=== PATIENT | male | born 1965 | race Caucasian/White ===

== ENCOUNTER 2017-07-07 23:39 | Inpatient (IN) | payer MEDICAID ==
[~2017-07-07] VITALS: Ht 188 cm; Wt 139.7 kg
[~2017-07-07 23:39] MED LIST: ALPRTAB PO; ASPI325T4 PO; ATOR40TA52 PO; CLOP75TA41 PO; FENO160T8 PO; GABA800T97 PO; GLIP-116 PO; INSLANTI SC; METF-372 PO
[2017-07-08] VITALS (11 sets, daily range): BP systolic 120–161; BP diastolic 65–112
[2017-07-08 00:34] LABS: Basophils # (auto) 0 uL; Basophils % (auto) 0.4 % (0.0-2.0); Eosinophils # (auto) 0.6 uL; Eosinophils % (auto) 5.5 % (0.0-7.0); Hematocrit 49.2 % (41.0-53.0); Hemoglobin 16.6 g/dL (13.5-17.5); Lymphocytes # (auto) 3.9 uL; Lymphocytes % (auto) 39.6 % (10.0-50.0); Mean Corpuscular Hemoglobin 30.7 pg (28.0-32.0); Mean Corpuscular Hgb Conc. 33.9 g/dL (32.0-36.0); Mean Corpuscular Volume 90.6 fL (80.0-100.0); Monocytes # (auto) 0.8 uL; Neutrophils # (auto) 4.6 uL; Neutrophils % (auto) 46.5 % (37.0-80.0); Nucleated Red Blood Cells % 0.2 %; Platelet Count (auto) 299 10^3/uL (140-450); Red Blood Cells 5.43 10^6/uL (4.5-5.90); Red Cell Distribution Width 13.4 % (11.8-14.3)
[2017-07-08 00:55] LABS: Alanine Aminotransferase 51 U/L (16-61); Albumin 3.6 g/dL (3.4-5.0); Amylase 57 U/L (25-115); Anion Gap 8 (5-15); Aspartate Aminotransferase 32 U/L (15-37); BUN/Creatinine Ratio 11.2; Blood Urea Nitrogen 12 mg/dL (7-18); Carbon Dioxide 26 mmol/L (21-32); Chloride 104 mmol/L (98-107); GFR African American 94 mL/min; GFR Non-African American 77 mL/min; Glucose 178 mg/dL (74-106); Lipase 220 U/L (73-393); Magnesium 2.2 mg/dL (1.6-2.6); Potassium 4.1 mmol/L (3.5-5.1); Sodium 138 mmol/L (136-145)
[2017-07-08 01:01] LABS: Alkaline Phosphatase 83 U/L (45-117); Bilirubin, Total 0.3 mg/dL (0.2-1.0); Total Protein 7.3 g/dL (6.4-8.2)
[2017-07-08 01:05] LABS: Urine Bacteria NONE SEEN /hpf (None Seen); Urine Blood 3+ /uL (Negative); Urine Mucus FEW (None Seen); Urine Specific Gravity 1.025 (1.001-1.035); Urine WBC 11 /hpf (0 - 3)
[2017-07-08] MEDS ORDERED: SODIUM CHLORIDE 0.9% 1,000 ML IVB ONE (06:37)
[2017-07-08] MEDS ORDERED: KETOROLAC TROMETH 30 MG/ML 1ML VIAL IV ONE (06:45)
[2017-07-08] MEDS ORDERED: GABAPENTIN 400 MG CAP PO ONE (07:30)
[2017-07-08] MEDS ORDERED: SODIUM CHLORIDE 0.9% 1,000 ML IV SCH ×2 (08:49→10:40)
[2017-07-08] MEDS ORDERED: SODIUM CHLORIDE 0.9% 1,000 ML IV ONE (08:51)
[2017-07-08] MEDS ORDERED: DOPamine 1600MCG/ML D5W 250 ML IV ONE (08:56)
[2017-07-08] MEDS ORDERED: LORazepam 0.5 MG TAB PO PRN (09:00)
[2017-07-08] MEDS ORDERED: ACETAMINOPHEN 500 MG TAB PO PRN (09:00)
[2017-07-08] MEDS ORDERED: PROMETHAZINE HCL 25 MG/ML 1ML IV PRN (09:00)
[2017-07-08] MEDS ORDERED: TEMAZEPAM 15 MG CAP PO PRN (09:00)
[2017-07-08] MEDS ORDERED: DEXTROSE (50%) 50ML SYRG IV PRN (09:00)
[2017-07-08] MEDS ORDERED: DOPamine 1600MCG/ML D5W 250 ML IV SCH (09:00)
[2017-07-08] MEDS ORDERED: HYDROcodone-ACET 5/325MG TAB PO PRN (09:00)
[2017-07-08] MEDS ORDERED: ATROPINE SULFATE 0.4 MG/1 ML VIAL IV ONE (09:11)
[2017-07-08] MEDS ORDERED: IOHEXOL 350 MG/ML 100ML IJ ONE ×2 (09:16→09:46)
[2017-07-08 09:41] LABS: CRP High Sensitivity 0.07 mg/dL (< 0.3); INR 0.99 (0.9-1.15); Prothrombin Time 10.8 sec (9.37-12.3)
[2017-07-08] MEDS ORDERED: LIDOCAINE 2%HCL (LOCAL ANESTH.) INJ 20ML MDV ONE ×2 (09:46→10:18)
[2017-07-08 10:03] LABS: Alcohol, Urine < 3.0 mg/dL (0-5); Amphetamine Screen, Urine NEGATIVE (NEGATIVE); Barbiturate Scree,Urine NEGATIVE (NEGATIVE); Benzodiazephine Screen, Urine NEGATIVE (NEGATIVE); Cannabinoid Screen, Urine NEGATIVE (NEGATIVE); Cocaine Screen, Urine NEGATIVE (NEGATIVE); Opiate Scree,Urine NEGATIVE (NEGATIVE); Phencyclidine Screen, Urine NEGATIVE (NEGATIVE)
[2017-07-08] MEDS ORDERED: ANGIOMAX 250 MG VIAL IV ONE (10:04)
[2017-07-08] MEDS ORDERED: fentaNYL CITRATE 100 MCG/2 ML VL ONE (10:04)
[2017-07-08] MEDS ORDERED: SODIUM CHL 0.9% 0 ML ONE (10:04)
[2017-07-08] MEDS ORDERED: MIDAZOLAM HCL 1MG/1ML-2 ML VIAL ONE (10:04)
[2017-07-08] MEDS ORDERED: ZOLPIDEM TARTRATE 5 MG TAB PO PRN (10:45)
[2017-07-08] MEDS ORDERED: NITROGLYCERIN 0.4 MG SL TAB SL PRN (10:45)
[2017-07-08] MEDS: InsuLIN REG 1unit/0.01ml Soln (100units/ml) SC SCH ×3 (11:30→21:34)
[2017-07-08] MEDS: ACCU-CHEK COMFORT CURVE STRIP VI SCH ×3 (11:30→21:34)
[2017-07-08] MEDS: FAMOTIDINE 20 MG TAB PO SCH ×2 (12:45→21:33)
[2017-07-08] MEDS: cefTRIAXone 1GM/50ML D5W 50 ML IV SCH (12:54)
[2017-07-08] MEDS: MORPHINE SULFATE 10 MG/ML INJ 1ML SDV IV PRN (14:48)
[2017-07-08] MEDS: ONDANSETRON HCL 4 MG/2 ML VIAL IV PRN (14:51)
[2017-07-08] MEDS: SODIUM CHLORIDE 0.9% 1,000 ML IV SCH (18:45)
[2017-07-08] MEDS ORDERED: ATORVASTATIN 20 MG TAB PO SCH (22:00)
[2017-07-09 05:44] VITALS: BP 128/79
[2017-07-09 06:18] LABS: Albumin 2.9 g/dL (3.4-5.0); BUN/Creatinine Ratio 13.7; Bilirubin, Total 0.4 mg/dL (0.2-1.0); Calcium 8.5 mg/dL (8.5-10.1); Potassium 4.6 mmol/L (3.5-5.1); Total Protein 6.3 g/dL (6.4-8.2)
[2017-07-09] MEDS: ACCU-CHEK COMFORT CURVE STRIP VI SCH ×2 (07:00→11:30)
[2017-07-09] MEDS: SODIUM CHLORIDE 0.9% 1,000 ML IV SCH (07:50)
[2017-07-09 09:00] VITALS: BP 109/74
[2017-07-09] MEDS: InsuLIN REG 1unit/0.01ml Soln (100units/ml) SC SCH ×2 (09:03→11:30)
[2017-07-09] MEDS: FAMOTIDINE 20 MG TAB PO SCH (09:14)
[2017-07-09] MEDS: cefTRIAXone 1GM/50ML D5W 50 ML IV SCH (09:14)
[2017-07-09] MEDS ORDERED: LEVO500T21 PO (10:35)
[2017-07-09] MEDS ORDERED: HYDR-4683 PO (10:35)
[2017-07-09 10:44] VITALS: BP 109/74
[2017-07-09] MEDS: ONDANSETRON HCL 4 MG/2 ML VIAL IV PRN (10:53)
[2017-07-09] MEDS: MORPHINE SULFATE 10 MG/ML INJ 1ML SDV IV PRN (10:57)
[2017-07-09] MEDS ORDERED: ATROPINE SULF 0.5 MG/5ML SYR IV ONE (13:44)
[2017-07-10 10:33] LABS: Hepatitis B Surface Antigen Negative (Negative)
[2017-07-10 11:01] LABS: Hepatitis C Antibody Negative (Negative)
[2017-07-10 11:02] LABS: Hepatitis B Core IgM Negative
[2017-07-10 11:03] LABS: Hepatitis A Ab IgM Negative
== END 2017-07-09 13:45 | disposition home health service (06) | DRG 192 ==
LOC: ER 23:47 → OVERFLOW 23:48 → ICU WEST 07-08 12:00 → TELE-CENTR 07-08 14:30
PROVIDERS: ADMIT Internal Medicine; ATTEND Internal Medicine
PROC: 4A023N7 Measurement of Cardiac Sampling and Pressure, Left Heart, Percutaneous Approach (ICD-10-PCS; principal; 2017-07-08)
PROC: B2111ZZ Fluoroscopy of Multiple Coronary Arteries using Low Osmolar Contrast (ICD-10-PCS; 2017-07-08)
PROC: B2151ZZ Fluoroscopy of Left Heart using Low Osmolar Contrast (ICD-10-PCS; 2017-07-08)
DX: R07.89 Other chest pain (principal); E11.40 Type 2 diabetes mellitus with diabetic neuropathy, unspecified; N13.2 Hydronephrosis with renal and ureteral calculous obstruction; R00.1 Bradycardia, unspecified; N39.0 Urinary tract infection, site not specified; I10 Essential (primary) hypertension; I25.10 Atherosclerotic heart disease of native coronary artery without angina pectoris; F41.9 Anxiety disorder, unspecified; E78.5 Hyperlipidemia, unspecified; Z95.5 Presence of coronary angioplasty implant and graft; Z79.4 Long term (current) use of insulin; Z79.899 Other long term (current) drug therapy; I25.2 Old myocardial infarction
CPT/HCPCS: 36415; 71010; 71260; 74176; 74177; 80053; 80061; 80074; 80307; 81001; 82150; 82550; 82962; 83036; 83690; 83735; 84443; 84484; 85025; 85610; 85652; 86141; 86850; 86900; 86901; 87081; 87086; 93005; 93458; 94761; 96361; 96374; 96375; 99152; 99153; G0378; J0461; J0696; J1815; J1885; J2250; J2405

== ENCOUNTER 2023-10-03 13:54 | Inpatient (IN) | payer MEDICAID ==
[~2023-10-03] VITALS: Ht 188 cm; Wt 98.7 kg
[~2023-10-03 13:54] MED LIST changes: -CLOP75TA41 PO; +CLOP75TA70 PO; +FENO160T PO; -FENO160T8 PO; -GLIP-116 PO; +GLIP10TA9 PO; +HYDR-4833 PO; +LEVO500T31 PO
[2023-10-03 14:44] LABS: Basophils # (auto) 0.2 10 ^3/uL (0-0.2); Basophils % (auto) 1.2 % (0.0-2.0); Eosinophils # (auto) 0.6 10 ^3/uL (0-0.8); Eosinophils % (auto) 4.8 % (0.0-7.0); Hematocrit 45.3 % (41.0-53.0); Lymphocytes # (auto) 1.7 10 ^3/uL (0.4-5.4); Lymphocytes % (auto) 12.5 % (10.0-50.0); Mean Corpuscular Hemoglobin 31.4 pg (28.0-32.0); Mean Corpuscular Hgb Conc. 33.1 g/dL (32.0-36.0); Mean Corpuscular Volume 94.9 fL (80.0-100.0); Monocytes # (auto) 1.2 10 ^3/uL (0-1.3); Monocytes % (auto) 9.1 % (0.0-12.0); Neutrophils # (auto) 9.6 10 ^3/uL (1.6-8.6); Neutrophils % (auto) 72.4 % (37.0-80.0); Red Blood Cells 4.77 10^6/uL (4.5-5.90); Red Cell Distribution Width 13.1 % (11.8-14.3); White Blood Cell 13.3 10^3/uL (4.4-10.8)
[2023-10-03 15:02] LABS: Alanine Aminotransferase 38 U/L (7-40); Albumin 4.4 g/dL (3.2-4.8); Alkaline Phosphatase 85 U/L (46-116); Anion Gap 6 (5-15); Aspartate Aminotransferase 29 U/L (13-40); BUN/Creatinine Ratio 16.5 (10.0-20.0); Blood Urea Nitrogen 19 mg/dL (9-23); Calcium 8.9 mg/dL (8.7-10.4); Carbon Dioxide 29 mmol/L (20-30); Chloride 105 mmol/L (98-107); Glucose 174 mg/dL (74-106); Potassium 4.6 mmol/L (3.5-5.1); Sodium 140 mmol/L (136-145); Total Protein 7.2 g/dL (5.7-8.2)
[2023-10-03 15:05] LABS: Partial Thromboplastin Time 27.9 SEC (24.5-34.5); Prothrombin Time 10.5 sec (9.3-11.8)
[2023-10-03] MEDS ORDERED: PIPERACILLIN-TAZOB 3.375GM 100 ML IV ONE (16:00)
[2023-10-03 16:08] LABS: Urine Bacteria NONE SEEN /hpf (None Seen); Urine Blood Negative /uL (Negative); Urine Clarity Clear (Clear); Urine Color Yellow (Yellow); Urine Hyaline Cast FEW /lpf (0 - 2); Urine Mucus MODERATE (None Seen); Urine Protein, UAD 1+ (Negative); Urine Specific Gravity 1.041 (1.001-1.035); Urine WBC 3 /hpf (0 - 3)
[2023-10-03] MEDS ORDERED: DEXTROSE (50%) 50ML SYRG IV PRN (16:15)
[2023-10-03] MEDS ORDERED: ACETAMINOPHEN 325 MG TAB PO PRN (16:15)
[2023-10-03] MEDS ORDERED: DOCUSATE SOD 100 MG CAP PO PRN (16:15)
[2023-10-03] MEDS ORDERED: ONDANSETRON HCL 4 MG/2 ML VIAL IV PRN (16:15)
[2023-10-03] MEDS ORDERED: ATOR-47 PO (16:40)
[2023-10-03] MEDS ORDERED: AMIO200T13 PO (16:40)
[2023-10-03] MEDS ORDERED: TIZA6CAP15 PO (16:40)
[2023-10-03] MEDS ORDERED: ACETAMINOPHEN 500 MG TAB PO ONE (17:00)
[2023-10-03] MEDS: InsuLIN REG 1unit/0.01ml Soln (100units/ml) SC SCH ×2 (17:00→22:49)
[2023-10-03] MEDS: ACCU-CHEK COMFORT CURVE STRIP VI SCH ×2 (17:00→22:48)
[2023-10-03 20:05] VITALS: PULSE 80; RESP 16; O2SAT 96
[2023-10-03] MEDS: PIPERACILLIN-TAZOB 3.375GM 100 ML IV SCH (22:46)
[2023-10-03] MEDS: ATORVASTATIN 20 MG TAB PO SCH (22:47)
[2023-10-03] MEDS: GABAPENTIN 400 MG CAP PO SCH (22:47)
[2023-10-03] MEDS: HYDROcodone-ACET 5/325MG TAB PO PRN (22:47)
[2023-10-03] MEDS: Tizanidine Hydrochloride PO SCH (22:48)
[2023-10-03] MEDS ORDERED: KETOROLAC TROMETH 30 MG/ML 1ML VIAL IV ONE (23:00)
[2023-10-04] MEDS: HYDROcodone-ACET 5/325MG TAB PO PRN ×2 (05:16→16:22)
[2023-10-04 05:20] LABS: Basophils # (auto) 0.1 10 ^3/uL (0-0.2); Basophils % (auto) 0.7 % (0.0-2.0); Eosinophils # (auto) 0.6 10 ^3/uL (0-0.8); Eosinophils % (auto) 4.9 % (0.0-7.0); Hematocrit 41.7 % (41.0-53.0); Hemoglobin 13.6 g/dL (13.5-17.5); Lymphocytes # (auto) 1.2 10 ^3/uL (0.4-5.4); Lymphocytes % (auto) 10.1 % (10.0-50.0); Mean Corpuscular Hemoglobin 30.9 pg (28.0-32.0); Mean Corpuscular Hgb Conc. 32.6 g/dL (32.0-36.0); Mean Corpuscular Volume 94.9 fL (80.0-100.0); Monocytes # (auto) 0.9 10 ^3/uL (0-1.3); Monocytes % (auto) 7.7 % (0.0-12.0); Neutrophils # (auto) 9.4 10 ^3/uL (1.6-8.6); Neutrophils % (auto) 76.6 % (37.0-80.0); Red Blood Cells 4.39 10^6/uL (4.5-5.90); Red Cell Distribution Width 12.7 % (11.8-14.3); White Blood Cell 12.2 10^3/uL (4.4-10.8)
[2023-10-04] MEDS: PIPERACILLIN-TAZOB 3.375GM 100 ML IV SCH ×4 (05:42→22:10)
[2023-10-04 05:47] LABS: Alanine Aminotransferase 29 U/L (7-40); Alkaline Phosphatase 73 U/L (46-116); Anion Gap 5 (5-15); BUN/Creatinine Ratio 13.6 (10.0-20.0); Blood Urea Nitrogen 20 mg/dL (9-23); Carbon Dioxide 26 mmol/L (20-30); Chloride 104 mmol/L (98-107); Glucose 160 mg/dL (74-106); Potassium 4.2 mmol/L (3.5-5.1)
[2023-10-04 05:48] LABS: Albumin 3.8 g/dL (3.2-4.8); Aspartate Aminotransferase 22 U/L (13-40); Bilirubin, Total 0.7 mg/dL (0.2-1.0); Total Protein 6.8 g/dL (5.7-8.2)
[2023-10-04] MEDS: Tizanidine Hydrochloride PO SCH ×3 (06:00→22:00)
[2023-10-04 06:30] LABS: Sodium 135 mmol/L (136-145)
[2023-10-04] MEDS: ACCU-CHEK COMFORT CURVE STRIP VI SCH ×4 (07:00→22:03)
[2023-10-04] MEDS: InsuLIN REG 1unit/0.01ml Soln (100units/ml) SC SCH ×4 (07:00→22:05)
[2023-10-04 08:55] VITALS: PULSE 70; RESP 19; O2SAT 98
[2023-10-04] MEDS: AMIODARONE HCL 200 MG TAB PO SCH (10:00)
[2023-10-04] MEDS: CLOPIDOGREL BISULFATE 75 MG TAB PO SCH (10:00)
[2023-10-04] MEDS: GABAPENTIN 400 MG CAP PO SCH ×2 (10:00→22:10)
[2023-10-04] MEDS ORDERED: NAP500T PO (11:02)
[2023-10-04] MEDS ORDERED: PERCOT PO (11:02)
[2023-10-04 13:00] VITALS: BP 95/51; PULSE 67; RESP 18; TEMP 98.5; O2SAT 95
[2023-10-04 17:00] VITALS: BP 150/72; PULSE 95; RESP 18; TEMP 101.3; O2SAT 93
[2023-10-04 20:00] VITALS: BP 125/69; PULSE 72; PULSE 75; RESP 18; TEMP 99.4; O2SAT 94
[2023-10-04 22:00] VITALS: BP 125/69; PULSE 75; RESP 19; TEMP 99.4; O2SAT 94
[2023-10-04] MEDS: ATORVASTATIN 20 MG TAB PO SCH (22:10)
[2023-10-05] MEDS: HYDROcodone-ACET 5/325MG TAB PO PRN ×2 (04:54→20:08)
[2023-10-05 05:00] VITALS: BP 108/62; PULSE 66; RESP 19; TEMP 97.5; O2SAT 94
[2023-10-05] MEDS: Tizanidine Hydrochloride PO SCH ×3 (06:00→21:42)
[2023-10-05] MEDS: PIPERACILLIN-TAZOB 3.375GM 100 ML IV SCH ×3 (06:20→21:29)
[2023-10-05] MEDS: ACCU-CHEK COMFORT CURVE STRIP VI SCH ×4 (06:51→21:42)
[2023-10-05] MEDS: InsuLIN REG 1unit/0.01ml Soln (100units/ml) SC SCH ×4 (06:51→21:41)
[2023-10-05 08:45] VITALS: BP 115/72; PULSE 61; RESP 20; TEMP 98.6; O2SAT 94
[2023-10-05] MEDS: CLOPIDOGREL BISULFATE 75 MG TAB PO SCH (09:30)
[2023-10-05] MEDS: AMIODARONE HCL 200 MG TAB PO SCH (09:30)
[2023-10-05] MEDS: GABAPENTIN 400 MG CAP PO SCH ×2 (09:30→21:31)
[2023-10-05] MEDS: DAKINS QUARTER STR 0.125% (NaHypochlorite) 473 ML TOPICAL SOL TOP SCH (09:31)
[2023-10-05] MEDS ORDERED: SEMA4INJ SC (09:42)
[2023-10-05] MEDS ORDERED: DOXY100C4 PO (09:45)
[2023-10-05] MEDS ORDERED: DAKI0.12 EX (09:45)
[2023-10-05 12:45] VITALS: BP 107/67; PULSE 64; RESP 18; TEMP 98.4; O2SAT 96
[2023-10-05 16:40] VITALS: BP 113/70; PULSE 66; RESP 18; TEMP 98.1; O2SAT 95
[2023-10-05] MEDS: ATORVASTATIN 20 MG TAB PO SCH (21:29)
[2023-10-05 22:00] VITALS: BP 112/72; PULSE 67; RESP 19; TEMP 98.6; O2SAT 96
[2023-10-06] MEDS: guaiFENesin-DM 100/10mg/5ml SYR PO PRN ×3 (00:07→21:07)
[2023-10-06 05:00] VITALS: BP 116/56; PULSE 68; RESP 17; TEMP 98.1; O2SAT 95
[2023-10-06] MEDS: Tizanidine Hydrochloride PO SCH ×3 (06:00→21:53)
[2023-10-06] MEDS: PIPERACILLIN-TAZOB 3.375GM 100 ML IV SCH (06:06)
[2023-10-06] MEDS: ACCU-CHEK COMFORT CURVE STRIP VI SCH ×4 (06:14→21:52)
[2023-10-06] MEDS: InsuLIN REG 1unit/0.01ml Soln (100units/ml) SC SCH ×4 (06:14→21:52)
[2023-10-06] MEDS ORDERED: ceFAZolin 2 GM/D5W100ml 100 ML IV ONE ×2 (06:43)
[2023-10-06] MEDS ORDERED: BUPIVACAINE 0.25% INJ 50ML VIAL ONE (06:45)
[2023-10-06] MEDS ORDERED: LIDOCAINE HCL (LOCAL ANESTH.) 0.5 % 50ML MDV IJ ONE (06:45)
[2023-10-06] MEDS ORDERED: KETAMINE 50mg/ML 1ml syringe ONE (06:50)
[2023-10-06] MEDS ORDERED: PROPOFOL 10 MG/ML 20 ML IV ONE ×2 (06:50→07:50)
[2023-10-06] MEDS ORDERED: KETOROLAC TROMETH 30 MG/ML 1ML VIAL ONE (06:51)
[2023-10-06] MEDS ORDERED: DexAMETHasone SOD PHOS 10MG/1ML VIAL INJ ONE (06:51)
[2023-10-06] MEDS ORDERED: GLYCOPYRROLATE 0.2 MG/ML 1ML VIAL ONE (06:51)
[2023-10-06] MEDS ORDERED: LIDOCAINE 2% (LOCAL ANESTH.) PF 5ml SDV ONE (06:51)
[2023-10-06] MEDS ORDERED: ONDANSETRON HCL 4 MG/2 ML VIAL ONE (06:51)
[2023-10-06 07:03] LABS: Basophils # (auto) 0.1 10 ^3/uL (0-0.2); Basophils % (auto) 1.1 % (0.0-2.0); Eosinophils # (auto) 0.4 10 ^3/uL (0-0.8); Eosinophils % (auto) 6.1 % (0.0-7.0); Hematocrit 41.9 % (41.0-53.0); Hemoglobin 13.7 g/dL (13.5-17.5); Lymphocytes # (auto) 1.1 10 ^3/uL (0.4-5.4); Mean Corpuscular Hemoglobin 30.8 pg (28.0-32.0); Mean Corpuscular Hgb Conc. 32.7 g/dL (32.0-36.0); Mean Corpuscular Volume 93.9 fL (80.0-100.0); Monocytes # (auto) 0.6 10 ^3/uL (0-1.3); Monocytes % (auto) 8.8 % (0.0-12.0); Neutrophils # (auto) 4.9 10 ^3/uL (1.6-8.6); Red Blood Cells 4.47 10^6/uL (4.5-5.90); Red Cell Distribution Width 12.4 % (11.8-14.3); White Blood Cell 7.2 10^3/uL (4.4-10.8)
[2023-10-06] MEDS ORDERED: CELECOXIB 100 MG CAP ONE (07:12)
[2023-10-06] MEDS ORDERED: ACETAMINOPHEN IV 100 ML IV ONE (07:13)
[2023-10-06] MEDS ORDERED: ACETAMINOPHEN IV 1000 MG/100ML (10MG/ML) IV ONE (07:15)
[2023-10-06] MEDS ORDERED: CELECOXIB 100 MG CAP PO ONE (07:15)
[2023-10-06] MEDS ORDERED: GABAPENTIN 400 MG CAP PO ONE (07:15)
[2023-10-06 07:16] LABS: INR 1.03 (0.9-1.15); Partial Thromboplastin Time 28.1 SEC (24.5-34.5); Prothrombin Time 10.8 sec (9.3-11.8)
[2023-10-06] MEDS: GABAPENTIN 400 MG CAP PO SCH ×3 (07:16→21:52)
[2023-10-06 07:17] LABS: Alkaline Phosphatase 59 U/L (46-116)
[2023-10-06 07:18] LABS: Alanine Aminotransferase 35 U/L (7-40); Albumin 3.7 g/dL (3.2-4.8); Anion Gap 6 (5-15); Aspartate Aminotransferase 36 U/L (13-40); Bilirubin, Total 0.6 mg/dL (0.2-1.0); Blood Urea Nitrogen 10 mg/dL (9-23); Calcium 8.7 mg/dL (8.7-10.4); Carbon Dioxide 29 mmol/L (20-30); Chloride 102 mmol/L (98-107); Glucose 131 mg/dL (74-106); Potassium 3.7 mmol/L (3.5-5.1); Sodium 137 mmol/L (136-145); Total Protein 6.6 g/dL (5.7-8.2)
[2023-10-06 08:08] VITALS: O2SAT 98
[2023-10-06] MEDS ORDERED: ONDANSETRON HCL 4 MG/2 ML VIAL IV PRN (08:15)
[2023-10-06] MEDS ORDERED: ePHEDrine SULFATE 50 MG/ML AMP IV PRN (08:15)
[2023-10-06] MEDS ORDERED: fentaNYL CITRATE 100 MCG/2 ML VL IV PRN (08:15)
[2023-10-06] MEDS ORDERED: FLUMAZENIL 0.1 MG/ML INJ 10ML MDV IV PRN (08:15)
[2023-10-06] MEDS ORDERED: LABETALOL HCL 5 MG/ML 4ML SYRINGE IV PRN (08:15)
[2023-10-06] MEDS ORDERED: HYDROmorphone HCL 2 MG/ML VL/or syr IV PRN (08:15)
[2023-10-06] MEDS ORDERED: hydrALAZINE HCL 20 MG/ML VL IV PRN (08:15)
[2023-10-06] MEDS ORDERED: NALOXONE HCL 0.4 MG/ML VIAL IV PRN (08:15)
[2023-10-06] MEDS: CLOPIDOGREL BISULFATE 75 MG TAB PO SCH (09:37)
[2023-10-06] MEDS: AMIODARONE HCL 200 MG TAB PO SCH (09:37)
[2023-10-06] MEDS: DAKINS QUARTER STR 0.125% (NaHypochlorite) 473 ML TOPICAL SOL TOP SCH (09:37)
[2023-10-06 12:46] VITALS: BP 106/68; PULSE 71; RESP 17; TEMP 98; O2SAT 92
[2023-10-06] MEDS: HYDROcodone-ACET 5/325MG TAB PO PRN ×2 (16:32→22:24)
[2023-10-06 17:06] VITALS: BP 115/73; PULSE 69; RESP 20; TEMP 97.6; O2SAT 97
[2023-10-06] MEDS: AMPICILLIN INJ 1 GM in SODIUM CHL 0.9% 100 ML IV SCH (17:45)
[2023-10-06 20:00] VITALS: RESP 17
[2023-10-06] MEDS: ATORVASTATIN 20 MG TAB PO SCH (21:52)
[2023-10-06 22:00] VITALS: BP 112/71; PULSE 66; RESP 18; TEMP 97.5; O2SAT 93
[2023-10-07] MEDS: AMPICILLIN INJ 1 GM in SODIUM CHL 0.9% 100 ML IV SCH ×3 (00:09→12:00)
[2023-10-07 05:00] VITALS: BP 124/72; PULSE 58; RESP 18; TEMP 97.5; O2SAT 93
[2023-10-07] MEDS: HYDROcodone-ACET 5/325MG TAB PO PRN (05:22)
[2023-10-07] MEDS: Tizanidine Hydrochloride PO SCH ×2 (05:23→14:00)
[2023-10-07] MEDS: InsuLIN REG 1unit/0.01ml Soln (100units/ml) SC SCH ×2 (05:28→11:03)
[2023-10-07] MEDS: ACCU-CHEK COMFORT CURVE STRIP VI SCH ×2 (05:28→11:03)
[2023-10-07] MEDS: guaiFENesin-DM 100/10mg/5ml SYR PO PRN (06:12)
[2023-10-07 08:00] VITALS: PULSE 68; RESP 20
[2023-10-07 08:40] VITALS: BP 134/82; PULSE 68; RESP 20; TEMP 98.1; O2SAT 97
[2023-10-07] MEDS: GABAPENTIN 400 MG CAP PO SCH (09:39)
[2023-10-07] MEDS: CLOPIDOGREL BISULFATE 75 MG TAB PO SCH (09:39)
[2023-10-07] MEDS: AMIODARONE HCL 200 MG TAB PO SCH (09:39)
[2023-10-07] MEDS: DAKINS QUARTER STR 0.125% (NaHypochlorite) 473 ML TOPICAL SOL TOP SCH (10:00)
[2023-10-07 12:40] VITALS: BP 107/67; PULSE 62; RESP 20; TEMP 97.6; O2SAT 97
== END 2023-10-07 16:51 | disposition home health service (06) | DRG 710 ==
LOC: ER 13:54 → OVERFLOW 16:40 → WEST WING 10-04 09:21
PROVIDERS: ADMIT Nurse Practitioner Family; ATTEND Family Medicine
PROC: 0LDV0ZZ Extraction of Right Foot Tendon, Open Approach (ICD-10-PCS; 2023-10-06)
PROC: 0JBQ0ZZ Excision of Right Foot Subcutaneous Tissue and Fascia, Open Approach (ICD-10-PCS; principal; 2023-10-06 07:38)
DX: A41.9 Sepsis, unspecified organism (principal); E11.621 Type 2 diabetes mellitus with foot ulcer; L03.115 Cellulitis of right lower limb; L97.519 Non-pressure chronic ulcer of other part of right foot with unspecified severity; L02.611 Cutaneous abscess of right foot; M86.8X7 Other osteomyelitis, ankle and foot; E11.622 Type 2 diabetes mellitus with other skin ulcer; E11.65 Type 2 diabetes mellitus with hyperglycemia; E11.69 Type 2 diabetes mellitus with other specified complication; E78.00 Pure hypercholesterolemia, unspecified; I25.10 Atherosclerotic heart disease of native coronary artery without angina pectoris; Z79.02 Long term (current) use of antithrombotics/antiplatelets; Z87.442 Personal history of urinary calculi; I25.2 Old myocardial infarction; Z88.5 Allergy status to narcotic agent; Z82.49 Family history of ischemic heart disease and other diseases of the circulatory system; Z95.5 Presence of coronary angioplasty implant and graft; Z81.8 Family history of other mental and behavioral disorders
CPT/HCPCS: 36415; 71045; 73700; 73718; 80053; 81001; 82962; 83036; 84484; 85025; 85610; 85730; 87040; 87070; 87075; 87081; 87205; G0378; J0131; J1100; J1815; J1885; J2001; J2405; J2543; J2704; J3490

== ENCOUNTER 2023-10-30 14:39 | Inpatient (IN) | payer MEDICAID ==
[~2023-10-30] VITALS: Ht 188 cm; Wt 97.0 kg
[~2023-10-30 14:39] MED LIST changes: -ALPRTAB PO; +AMIO200T13 PO; +AMPI500C9 PO; +ATOR-47 PO; -ATOR40TA52 PO; +DAKI0.12 EX; +DOXY100C4 PO; -FENO160T PO; -GLIP10TA9 PO; -HYDR-4833 PO; -INSLANTI SC; -LEVO500T31 PO; +NAP500T PO; +PERCOT PO; +SEMA4INJ SC; +TIZA6CAP15 PO
[2023-10-30 16:27] LABS: Basophils # (auto) 0.2 10 ^3/uL (0-0.2); Basophils % (auto) 2.3 % (0.0-2.0); Eosinophils # (auto) 0.9 10 ^3/uL (0-0.8); Hematocrit 46.7 % (41.0-53.0); Hemoglobin 15.2 g/dL (13.5-17.5); Lymphocytes # (auto) 2.1 10 ^3/uL (0.4-5.4); Lymphocytes % (auto) 27.3 % (10.0-50.0); Mean Corpuscular Hemoglobin 30.4 pg (28.0-32.0); Mean Corpuscular Hgb Conc. 32.6 g/dL (32.0-36.0); Mean Corpuscular Volume 93.1 fL (80.0-100.0); Monocytes # (auto) 0.7 10 ^3/uL (0-1.3); Monocytes % (auto) 8.6 % (0.0-12.0); Neutrophils % (auto) 50.8 % (37.0-80.0); Nucleated Red Blood Cells % 0.1 %; Red Blood Cells 5.01 10^6/uL (4.5-5.90); Red Cell Distribution Width 13.4 % (11.8-14.3); White Blood Cell 7.8 10^3/uL (4.4-10.8)
[2023-10-30 16:37] LABS: Chloride 106 mmol/L (98-107); Potassium 4.6 mmol/L (3.5-5.1); Sodium 140 mmol/L (136-145)
[2023-10-30 16:38] LABS: Anion Gap 5 (5-15); Calcium 9.4 mg/dL (8.5-10.1); Carbon Dioxide 29 mmol/L (20-30)
[2023-10-30 16:43] LABS: BUN/Creatinine Ratio 10.8 (10.0-20.0); Blood Urea Nitrogen 12 mg/dL (9-23); Glucose 188 mg/dL (74-106)
[2023-10-30 16:54] LABS: CRP High Sensitivity 1.29 mg/dL (<1.0)
[2023-10-30] MEDS ORDERED: ACETAMINOPHEN 325 MG TAB PO PRN (17:15)
[2023-10-30] MEDS ORDERED: NITROGLYCERIN 0.4 MG SL TAB SL PRN (17:15)
[2023-10-30] MEDS ORDERED: MORPHINE SULFATE INJ 2 MG/ml SYRG IV PRN (17:15)
[2023-10-30] MEDS ORDERED: ONDANSETRON HCL 4 MG/2 ML VIAL IV PRN (17:15)
[2023-10-30 17:25] LABS: Erythrocyte Sedimentation Rate 43 mm/hr (0-20)
[2023-10-30] MEDS ORDERED: DEXTROSE (50%) 50ML SYRG IV PRN (17:30)
[2023-10-30] MEDS ORDERED: AMPICILLIN INJ 1 GM in SODIUM CHL 0.9% 100 ML IV SCH (18:00)
[2023-10-30] MEDS: ACCU-CHEK COMFORT CURVE STRIP VI SCH (22:00)
[2023-10-30] MEDS: InsuLIN REG 1unit/0.01ml Soln (100units/ml) SC SCH (22:00)
[2023-10-30] MEDS: SODIUM CHLOR 0.9% PF (SALINE LOCK) 10ML VIAL/SYR IV SCH (22:00)
[2023-10-31] MEDS: GABAPENTIN 400 MG CAP PO SCH (00:06)
[2023-10-31] MEDS: AMPICILLIN & SULBACTAM SODIUM 3 GM in SODIUM CHL 0.9% 100 ML IV ONE (00:06)
[2023-10-31 00:21] LABS: Urine Bacteria NONE SEEN /hpf (None Seen); Urine Blood Negative /uL (Negative); Urine Clarity Clear (Clear); Urine Color Yellow (Yellow); Urine Mucus FEW (None Seen); Urine Protein, UAD TRACE (Negative); Urine Specific Gravity 1.027 (1.001-1.035); Urine Urobilinogen Normal (Negative); Urine WBC 3 /hpf (0 - 3); Urine pH 5.5 (5.0-8.0)
[2023-10-31] MEDS: AMPICILLIN & SULBACTAM SODIUM 3 GM in SODIUM CHL 0.9% 100 ML IV SCH (01:09)
[2023-10-31] MEDS: HYDROcodone-ACET 5/325MG TAB PO PRN (01:35)
[2023-10-31] MEDS: InsuLIN REG 1unit/0.01ml Soln (100units/ml) SC SCH (06:36)
[2023-10-31 07:06] LABS: Basophils # (auto) 0.1 10 ^3/uL (0-0.2); Basophils % (auto) 1.8 % (0.0-2.0); Eosinophils % (auto) 12.1 % (0.0-7.0); Hematocrit 45.4 % (41.0-53.0); Hemoglobin 14.7 g/dL (13.5-17.5); Lymphocytes % (auto) 37.4 % (10.0-50.0); Mean Corpuscular Hemoglobin 30.2 pg (28.0-32.0); Mean Corpuscular Hgb Conc. 32.4 g/dL (32.0-36.0); Mean Corpuscular Volume 93.2 fL (80.0-100.0); Monocytes # (auto) 0.6 10 ^3/uL (0-1.3); Monocytes % (auto) 7.2 % (0.0-12.0); Neutrophils # (auto) 3.4 10 ^3/uL (1.6-8.6); Neutrophils % (auto) 41.5 % (37.0-80.0); Red Blood Cells 4.87 10^6/uL (4.5-5.90); Red Cell Distribution Width 13.4 % (11.8-14.3); White Blood Cell 8.1 10^3/uL (4.4-10.8)
[2023-10-31 07:19] VITALS: RESP 18; O2SAT 98
[2023-10-31 07:19] LABS: Alanine Aminotransferase 27 U/L (7-40); Albumin 4.1 g/dL (3.2-4.8); Alkaline Phosphatase 95 U/L (46-116); Anion Gap 5 (5-15); Aspartate Aminotransferase 30 U/L (13-40); Blood Urea Nitrogen 12 mg/dL (9-23); Calcium 9.3 mg/dL (8.5-10.1); Carbon Dioxide 26 mmol/L (20-30); Chloride 108 mmol/L (98-107); Glucose 223 mg/dL (74-106); Potassium 4.4 mmol/L (3.5-5.1); Sodium 139 mmol/L (136-145)
[2023-10-31 07:20] LABS: Bilirubin, Total 0.3 mg/dL (0.2-1.0); Total Protein 7.6 g/dL (5.7-8.2)
[2023-10-31 09:12] LABS: INR 0.95 (0.9-1.15); Partial Thromboplastin Time 26.5 SEC (24.5-34.5)
[2023-10-31] MEDS ORDERED: SEMAGLUTIDE SC SCH (10:00)
[2023-10-31] MEDS ORDERED: [UNRECOGNIZED DRUG - OTHER] SC SCH (10:00)
[2023-10-31] MEDS: ASPirin-EC 325mg tab PO SCH (10:08)
[2023-10-31] MEDS: AMIODARONE HCL 200 MG TAB PO SCH (10:08)
[2023-10-31] MEDS: ATORVASTATIN 20 MG TAB PO SCH (10:08)
[2023-10-31] MEDS: CLOPIDOGREL BISULFATE 75 MG TAB PO SCH (10:08)
[2023-10-31 18:26] VITALS: BP 112/76; PULSE 68; RESP 18; TEMP 97.9
[2023-10-31 18:28] VITALS: PULSE 54; PULSE 58; RESP 20; O2SAT 98
[2023-10-31 20:00] VITALS: PULSE 65; PULSE 68; RESP 18; O2SAT 97
[2023-10-31 22:00] VITALS: BP 125/74; PULSE 64; RESP 16; TEMP 98; O2SAT 97
[2023-11-01] VITALS (9 sets, daily range): BP systolic 114–136; BP diastolic 59–82; PULSE 52–86; RESP 16–18; TEMP 97.6–98.1; O2SAT 95–98
[2023-11-01] MEDS ORDERED: LIDOCAINE HCL (LOCAL ANESTH.) 0.5 % 50ML MDV IJ ONE (08:15)
[2023-11-01] MEDS ORDERED: BUPIVACAINE 0.25% INJ 50ML VIAL ONE (08:15)
[2023-11-01] MEDS ORDERED: GLYCOPYRROLATE 0.2 MG/ML 1ML VIAL ONE (08:19)
[2023-11-01] MEDS ORDERED: MIDAZOLAM HCL 2MG/2ML 2ml VIAL (1mg/ml) ONE (08:19)
[2023-11-01] MEDS ORDERED: ONDANSETRON HCL 4 MG/2 ML VIAL ONE (08:19)
[2023-11-01] MEDS ORDERED: KETAMINE 50mg/ML 1ml syringe ONE (08:19)
[2023-11-01] MEDS ORDERED: PROPOFOL 10 MG/ML 20 ML IV ONE (08:19)
[2023-11-01] MEDS ORDERED: ceFAZolin 2 GM/D5W50ml 50 ML IV ONE (08:30)
[2023-11-01] MEDS ORDERED: ONDANSETRON HCL 4 MG/2 ML VIAL IV PRN (09:45)
[2023-11-01] MEDS ORDERED: ACCU-CHEK COMFORT CURVE STRIP VI ONE (09:45)
[2023-11-01] MEDS ORDERED: fentaNYL CITRATE 100 MCG/2 ML VL IV PRN (09:45)
[2023-11-01 11:08] LABS: Basophils # (auto) 0.2 10 ^3/uL (0-0.2); Basophils % (auto) 2.4 % (0.0-2.0); Eosinophils # (auto) 0.7 10 ^3/uL (0-0.8); Eosinophils % (auto) 9.3 % (0.0-7.0); Hematocrit 44.7 % (41.0-53.0); Hemoglobin 14.4 g/dL (13.5-17.5); Lymphocytes # (auto) 3.1 10 ^3/uL (0.4-5.4); Lymphocytes % (auto) 39.3 % (10.0-50.0); Mean Corpuscular Hemoglobin 30.2 pg (28.0-32.0); Mean Corpuscular Hgb Conc. 32.2 g/dL (32.0-36.0); Mean Corpuscular Volume 93.8 fL (80.0-100.0); Monocytes # (auto) 0.7 10 ^3/uL (0-1.3); Monocytes % (auto) 8.4 % (0.0-12.0); Neutrophils # (auto) 3.2 10 ^3/uL (1.6-8.6); Neutrophils % (auto) 40.6 % (37.0-80.0); Nucleated Red Blood Cells % 0.3 %; Red Blood Cells 4.77 10^6/uL (4.5-5.90); Red Cell Distribution Width 13.3 % (11.8-14.3)
[2023-11-01 11:24] LABS: Chloride 107 mmol/L (98-107); Sodium 138 mmol/L (136-145)
[2023-11-01 11:25] LABS: Anion Gap 3 (5-15); Calcium 8.6 mg/dL (8.5-10.1); Carbon Dioxide 28 mmol/L (20-30)
[2023-11-01 11:30] LABS: BUN/Creatinine Ratio 9.6 (10.0-20.0); Blood Urea Nitrogen 9 mg/dL (9-23); Glucose 125 mg/dL (74-106)
[2023-11-01] MEDS: MORPHINE SULFATE INJ 2 MG/ml SYRG IV PRN (17:06)
[2023-11-02] VITALS (7 sets, daily range): BP systolic 97–105; BP diastolic 61–68; PULSE 59–74; RESP 16–18; TEMP 97.6–98.6; O2SAT 91–97
[2023-11-02] MEDS: DAKINS HALF STR 0.25% (NaHypochlorite) 473 ML TOPICAL SOL TOP SCH (13:21)
[2023-11-03] VITALS (7 sets, daily range): BP systolic 94–113; BP diastolic 52–76; PULSE 57–68; RESP 17–19; TEMP 97.9–98.9; O2SAT 9–97
[2023-11-03] MEDS: DOCUSATE SOD 100 MG CAP PO PRN (13:20)
[2023-11-03] MEDS: LIDOCAINE 1% (LOCAL ANESTH.) PF 5ml SDV ID ONE (17:15)
[2023-11-03] MEDS: POLYETHYLENE GLYCOL 17 GM PWDR PO PRN (18:03)
[2023-11-03] MEDS: SODIUM CHLOR 0.9% PF (SALINE LOCK) 10ML VIAL/SYR IV SCH (20:30)
[2023-11-03] MEDS: DOCUSATE SOD 100 MG CAP PO SCH (21:31)
[2023-11-04] VITALS (7 sets, daily range): BP systolic 108–126; BP diastolic 60–83; PULSE 59–79; RESP 13–19; TEMP 97.6–98.3; O2SAT 91–97
[2023-11-04] MEDS: cefTRIAXone 2GM/50ML D5W 50 ML IV SCH (10:28)
[2023-11-04] MEDS ORDERED: METR500T PO (17:31)
== END 2023-11-04 20:15 | disposition home or self-care (01) | DRG 305 ==
LOC: ER 14:39 → TELE 17:11 → TELE-WESTW 10-31 17:25
PROVIDERS: ADMIT Nurse Practitioner Family; ATTEND Internal Medicine
PROC: 0Y6M0Z9 Detachment at Right Foot, Partial 1st Ray, Open Approach (ICD-10-PCS; principal; 2023-11-01 08:34)
PROC: 02HV33Z Insertion of Infusion Device into Superior Vena Cava, Percutaneous Approach (ICD-10-PCS; 2023-11-03)
PROC: B548ZZA Ultrasonography of Superior Vena Cava, Guidance (ICD-10-PCS; 2023-11-03)
DX: E11.69 Type 2 diabetes mellitus with other specified complication (principal); M86.9 Osteomyelitis, unspecified; L03.115 Cellulitis of right lower limb; G89.29 Other chronic pain; E78.5 Hyperlipidemia, unspecified; I10 Essential (primary) hypertension; E11.621 Type 2 diabetes mellitus with foot ulcer; E11.65 Type 2 diabetes mellitus with hyperglycemia; L97.519 Non-pressure chronic ulcer of other part of right foot with unspecified severity; I25.10 Atherosclerotic heart disease of native coronary artery without angina pectoris; Z95.5 Presence of coronary angioplasty implant and graft; I25.2 Old myocardial infarction; Z88.5 Allergy status to narcotic agent; Z88.1 Allergy status to other antibiotic agents; Z87.442 Personal history of urinary calculi; Z82.49 Family history of ischemic heart disease and other diseases of the circulatory system
CPT/HCPCS: 36415; 36569; 71045; 73718; 80048; 80053; 81001; 82962; 85025; 85610; 85652; 85730; 86141; 87040; 87070; 87075; 87077; 87186; 87205; 93005; G0378; J1815; J2250; J2405; J2704; J3490